=== PATIENT | female | born 1955 | race Caucasian/White ===

== ENCOUNTER 2016-08-25 15:43 | Outpatient (CLI) | payer MEDICARE, MEDICAID ==
[2016-08-26 18:06] LABS: Microalbumin Urine Less than 1.0 mg/dL (0.5-50.0)
== END 2016-08-25 15:44 | disposition home or self-care (01) ==
LOC: HPCALD 15:43
PROVIDERS: ATTEND Family Medicine
DX: E03.9 Hypothyroidism, unspecified (principal); E11.9 Type 2 diabetes mellitus without complications
CPT/HCPCS: 36415; 82043; 84443

== ENCOUNTER 2016-09-20 12:45 | Outpatient (CLI) | payer MEDICARE, MEDICAID ==
--- NOTE | 2016-09-22 07:26 | ULT ---
THYROID ULTRASOUND: History: Thyroid nodule. History of thyroid cancer with a left thyroid lobectomy. Comparison: 04-20-15 FINDINGS: Real-time images of the thyroid gland show that the left lobe has been removed. On the right side t here are multiple nodules present, most of which are subcentimeter in size. The largest nodule is a more complex nodule located in the lower pole region. It measures 1.7 x 2.5 cm. This appears to c orrespond to a similar appearance to a mass in the lower pole region which measured approximately 2. 1 x 1.2 cm in size on the prior exam. The other nodules appear fairly similar in appearance. IMPRESSION: 1. Post op left thyroid lobectomy. 2. Multiple right lobe thyroid nodules, difficult to directly compare although the more inferior no dule may be slightly increased in size as compared to the previous study. POS: DENNY
== END 2016-09-20 12:46 | disposition home or self-care (01) ==
LOC: BURULT 12:45
PROVIDERS: ATTEND Family Medicine
DX: E04.1 Nontoxic single thyroid nodule (principal); E04.2 Nontoxic multinodular goiter
CPT/HCPCS: 76536

== ENCOUNTER 2018-07-19 09:02 | Outpatient (CLI) | payer MEDICARE ==
--- NOTE | 2018-07-19 14:03 | CT ---
CT ABDOMEN AND PELVIS: 07/19/2018 HISTORY/TECHNIQUE: A spiral CT of the abdomen and pelvis was performed for evaluation of left upper quadrant pain. Axia l slices were acquired after giving oral and IV contrast. Coronal and sagittal constructions were la ter done. FINDINGS: The lung bases are clear. The liver seems slightly generous in size but internally appears normal. The spleen is normal in size. No abnormalities of the left upper quadrant are seen to fully explain pain. The pancreas, adrenal glands, and kidneys are unremarkable. There has been a prior cholecyste ctomy. The abdominal aorta is normal in caliber. There is no distention of bowel to suggest obstruction. A small to medium sized amount of fecal mate rial is present in the colon. Some scattered diverticula are noted without any periintestinal strand ing to suggest diverticulitis. There is some segmental thickening of the wall of the sigmoid colon, which could have been inflamed in the past. No free air or free fluid is present. The appendix appe ars normal. CT of the pelvis is remarkable for some enlargement of the fundus and a portion of the body of the ut erus. There is a low density area within it that may be fluid in the endometrial cavity. I cannot e xclude a uterine mass, such as a fibroid. I definitely fell the uterus needs more attention, as the appearance is rather abnormal. An ultrasound is recommended. The adnexal regions are unremarkable. There is no free air or free fluid seen. While there are some mild degenerative changes in the spin e, they are not very impressive. IMPRESSION: 1. No findings to fully explain left upper quadrant pain. At most, minor constipation. 2. Mild to moderate thickening of the sigmoid colon, perhaps due to prior inflammation. 3. Diverticulosis without findings of diverticulitis. 4. Borderline hepatic size. 5. Rather bulbous, unusually shaped uterine fundus and body, possibly with a mass and/or fluid withi n it. A pelvic ultrasound is definitely needed to investigate this further. CODE T POS: DENNY
== END 2018-07-19 09:03 | disposition home or self-care (01) ==
LOC: BURCT 09:02
PROVIDERS: ATTEND Family Medicine
DX: R10.12 Left upper quadrant pain (principal); K57.90 Diverticulosis of intestine, part unspecified, without perforation or abscess without bleeding; K63.89 Other specified diseases of intestine
CPT/HCPCS: 74177

== ENCOUNTER 2018-07-31 10:52 | Outpatient (CLI) | payer MEDICARE ==
--- NOTE | 2018-07-31 20:07 | ULT ---
PELVIC ULTRASOUND WITH ENDOVAGINAL IMAGING 07/31/18 Transabdominal scans were initially obtained. Due to the need to see pathology better, endovaginal im aging was then done. The exam was done in response to a recent CT scan that was abnormal in the pelvi c region. The uterus measures 10.8 x 5.7 x 6.1 cm. There is a mass seen in the fundal region that measures 3.5 x 3.0 x 4.1 cm. It is complex in echotexture and has blood flow within it. The endometrium seems very thick, measuring at least 1.4 cm in width. Neither ovary was reliably imaged. There is no free fluid in the pelvis. IMPRESSION: 1. 4.1 cm complex uterine mass with blood flow. A fibroid is certainly possible, though the appe arance is slightly atypical. 2. Endometrial thickening. Comment: Given the two findings above, I feel referral to a track repairer for possible further workup should be done. Code T POS: HOME
== END 2018-07-31 10:53 | disposition home or self-care (01) ==
LOC: BURULT 10:52
PROVIDERS: ATTEND Family Medicine
DX: N94.89 Other specified conditions associated with female genital organs and menstrual cycle (principal); N85.8 Other specified noninflammatory disorders of uterus; R93.89 Abnormal findings on diagnostic imaging of other specified body structures
CPT/HCPCS: 76856

== ENCOUNTER 2019-01-16 09:33 | Outpatient (CLI) | payer MEDICARE, MEDICAID ==
--- NOTE | 2019-01-16 13:38 | ULT ---
ABDOMINAL ULTRASOUND: DATE: 01/16/2019. FINDINGS: Ultrasonography of the abdomen was performed. The liver is borderline in size measuring 15.3 cm in o blique sagittal length, but internally no focal pathology or dilated ducts were seen. The spleen is normal in size. The pancreas is mostly obscured by gas, but the visible portions were unremarkable. The gallbladder has been surgically removed. The common bile duct is a normal 5 mm in caliber. The right kidney is 9.9 cm long as is the left. No abnormalities were seen in either. There is no sign of aortic aneurysm. IMPRESSION: Other than borderline hepatic size which may or may not be of significance, there were no acute abdom inal findings of concern. Shadowing from the area of the gallbladder fossa is presumably clipped fro m her prior cholecystectomy. POS: DENNY
== END 2019-01-16 09:34 | disposition home or self-care (01) ==
LOC: BURULT 09:33
PROVIDERS: ATTEND Nurse Practitioner Family
DX: R10.33 Periumbilical pain (principal); G89.29 Other chronic pain; Z90.49 Acquired absence of other specified parts of digestive tract
CPT/HCPCS: 76700

== ENCOUNTER 2019-06-24 17:00 | Emergency (ER) | payer MEDICARE, MEDICAID ==
[~2019-06-24 17:00] MED LIST: Iopamidol 370 76% 100 ML VIAL ONE
[2019-06-24 17:48] LABS: #Basophils 0.1 thou/uL (0.0-0.2); #Eosinphils 0.3 thou/uL (0.0-0.7); #Monocytes 0.6 thou/uL (0.11-0.59); #Neutrophils 8.3 thou/uL (1.40-6.50); %Basophils 0.8 % (0.0-1.0); %Eosinophils 2.8 % (0.0-10.0); %Lymphocytes 24.5 % (21.0-51.0); %Monocytes 4.4 % (0.0-10.0); %Neutrophils 67.4 % (42.0-75.0); Hemoglobin 15.6 g/dL (12.0-16.0); Mean Corpuscular HGB CONC 33.1 g/dL (32.0-36.0); Mean Corpuscular Hemoglobin 29.4 pg (27.0-31.0); Mean Corpuscular Volume 88.8 fL (78.0-98.0); Mean Platelet Volume 9.1 fL (7.4-10.4); Platelet Count 342 thou/uL (130-400); RBC Distribution Width 12.7 % (11.5-14.5); White Blood Cell (WBC) Count 12.4 thou/uL (4.8-10.8)
[2019-06-24 17:51] LABS: Anion Gap 19 mmol/L (10-20); BUN (Urea Nitrogen) 16 mg/dL (9.8-20.1); Carbon Dioxide 18 mmol/L (23-31); Chloride 106 mmol/L (98-107); Potassium 3.6 mmol/L (3.5-5.1); Sodium 139 mmol/L (136-145)
[2019-06-24 17:52] LABS: ALT (SGPT) 17 U/L (8-55); AST (SGOT) 14 U/L (5-34); Albumin 4.2 g/dL (3.4-4.8); Alkaline Phosphatase 121 U/L (40-110); Bilirubin, Total 0.2 mg/dL (0.2-1.2); Calc. Creatinine Clearance 0 mL/min (70-130); Calcium 10.1 mg/dL (7.8-10.44); Estimated GFR-MDRD 75; Globulin 3.4 g/dL (2.4-3.5); Glucose 192 mg/dL (80-115); Protein, Total 7.6 g/dL (6.0-8.3)
--- NOTE | 2019-06-24 18:20 | RAD ---
PORTABLE CHEST ONE VIEW: 06/24/19 at 5:38 p.m. HISTORY: Sudden pain. Left lateral neck radiating to the left shoulder and left upper chest. FINDINGS: The heart size is normal. The lungs are well expanded without lobar consolidation, pneumothoraces or pleural effusions. IMPRESSION: No radiographic evidence of acute cardiopulmonary process. POS: MZA
--- NOTE | 2019-06-24 18:57 | CT ---
CTA CHEST, ABDOMEN FOLLOWING AORTOGRAM PROTOCOL WITH IV CONTRAST: 06/24/19 Multiplanar reconstruction and 3D postprocessing performed. INDICATIONS: Dissection protocol was requested. High D-dimer. Chest pain. FINDINGS: Thoracic aorta is unremarkable. There is no evidence of dissection. There is no evidence of aneurysma l dilatation. Abdominal aorta is unremarkable. Minimal atherosclerotic change. No evidence of dissection or aneurys mal dilatation. Aortic branches including celiac artery, superior mesenteric artery, and renal arteri es appear unremarkable. Aortic bifurcation unremarkable. Soft tissues: The lungs are clear of infiltrate. There is mild vascular engorgement. No effusion. Mediastinum unrem arkable. The pulmonary arteries are well opacified. There is no evidence of pulmonary embolus to the segmental level. No adenopathy. Incidentally noted is an enlarged heterogeneous multinodular thyroid gland. The right lobe of the th yroid is especially prominent measuring up to 4.2 cm AP dimension. The left lobe is not definitely id entified and may be surgically absent. Soft tissue of the abdomen show unremarkable liver, spleen, pancreas, and kidneys. Visualized bowel l oops unremarkable. IMPRESSION: 1. No evidence of aortic dissection or aneurysm. 2. No evidence of pulmonary embolus. 3. No acute lung process. There is mild vascular engorgement. 4. Right lobe of thyroid is enlarged and heterogeneous with multiple nodules present. A thyroid ultrasound from 2017 described previous left thyroid lobectomy with enlarged multinodular right lobe. Recommend elective follow-up thyroid ultrasound to compare to the prior exam. POS: OFF
== END 2019-06-24 20:37 | disposition home or self-care (01) ==
LOC: BURERS 17:00
DX: M54.2 Cervicalgia (principal); K21.9 Gastro-esophageal reflux disease without esophagitis; E78.5 Hyperlipidemia, unspecified; E03.9 Hypothyroidism, unspecified; E11.9 Type 2 diabetes mellitus without complications; F17.210 Nicotine dependence, cigarettes, uncomplicated
CPT/HCPCS: 36415; 71045; 71275; 72191; 74175; 80053; 84484; 85025; 85379; 93005; Q9967

== ENCOUNTER 2021-05-18 09:59 | Outpatient (CLI) | payer MEDICARE, MEDICAID | END 2021-05-18 10:00 | disposition home or self-care (01) | LOC: BURRAD 09:59 | PROVIDERS: ATTEND Family Medicine | DX: M50.30 Other cervical disc degeneration, unspecified cervical region (principal); M62.838 Other muscle spasm; Z98.1 Arthrodesis status | CPT/HCPCS: 72050 ==

== ENCOUNTER 2022-07-18 14:57 | Outpatient (CLI) | payer OTHER | END 2022-07-18 14:58 | disposition home or self-care (01) | LOC: BURRAD 14:57 | PROVIDERS: ATTEND Nurse Practitioner Family | DX: S89.92XA Unspecified injury of left lower leg, initial encounter (principal); M79.671 Pain in right foot; M77.31 Calcaneal spur, right foot ==

== ENCOUNTER 2023-02-21 15:15 | Outpatient (CLI) | payer OTHER, MEDICAID | END 2023-02-21 15:16 | disposition home or self-care (01) | LOC: BURRAD 15:15 | PROVIDERS: ATTEND Family Medicine | DX: M50.30 Other cervical disc degeneration, unspecified cervical region (principal); M47.812 Spondylosis without myelopathy or radiculopathy, cervical region | CPT/HCPCS: 72050 ==

== ENCOUNTER 2024-04-11 19:16 | Emergency (ER) | payer OTHER, MEDICAID ==
[2024-04-11] MEDS ORDERED: Dexamethasone 10 MG/ML VIAL ONE (19:22)
[2024-04-11] MEDS ORDERED: diphenhydrAMINE 50 MG/ML VIAL ONE ×3 (19:23→21:10)
[2024-04-11] MEDS ORDERED: Ondansetron PF 4 MG/2 ML Vial ONE (19:29)
[2024-04-11] MEDS ORDERED: Famotidine/PF 20 mg/2ml Vial ONE (19:59)
== END 2024-04-11 21:17 | disposition home or self-care (01) ==
LOC: BURERS 19:16
DX: T63.441A Toxic effect of venom of bees, accidental (unintentional), initial encounter (principal); Z87.891 Personal history of nicotine dependence
CPT/HCPCS: J1100; J1200; J2405; J3490; 96374; 96375; 96376